=== PATIENT | female | born 1970 | race Caucasian/White ===

== ENCOUNTER 2019-04-28 11:33 | Day surgery (SDC) | payer BC ==
[2019-04-28] MEDS ORDERED: LACTATED RINGER'S 1,000 ML IV (13:00)
[2019-04-28] MEDS ORDERED: BUPIVACAINE 0.5% (SDV) 30 ML INJ (13:47)
[2019-04-28] MEDS ORDERED: LIDOCAINE 1% (MDV) 20 ML INJ (13:56)
[2019-04-28] MEDS ORDERED: FENTAnyl 50 MCG/ML VIAL (13:57)
[2019-04-28] MEDS ORDERED: CEFAZOLIN 1 GM INJ (13:57)
[2019-04-28] MEDS ORDERED: MIDAZOLAM 1 MG/ML 2 ML INJ (13:57)
[2019-04-28] MEDS ORDERED: LABETALOL HCL 20MG INJ IV (14:00)
[2019-04-28] MEDS ORDERED: DIPHENHYDRAMINE 50 MG INJ IV (14:00)
[2019-04-28] MEDS ORDERED: hydrALAzine 20 MG INJ IV (14:00)
[2019-04-28] MEDS ORDERED: ALBUTEROL 0.083% (NEB) 2.5 MG/3 ML AMP HHN (14:00)
[2019-04-28] MEDS ORDERED: FENTAnyl 50 MCG/ML VIAL IV ×2 (14:00)
[2019-04-28] MEDS ORDERED: morphine 2 MG INJ IV ×2 (14:00)
[2019-04-28] MEDS ORDERED: EPHEDrine 25 MG/5 ML SYG IV (14:00)
[2019-04-28] MEDS ORDERED: HYDROmorphONE 1 MG/5 ML IV SYRINGE IV ×2 (14:00)
[2019-04-28] MEDS ORDERED: MEPERIDINE 25 MG INJ IV (14:00)
[2019-04-28] MEDS ORDERED: OXYCODONE/ACETAMINOPHEN (5/325) TAB PO ×2 (14:00)
[2019-04-28] MEDS ORDERED: PROPOFOL 60 ML (14:20)
[2019-04-28] MEDS: BUPIVACAINE 0.5% (SDV) 30 ML INJ INJ (14:30)
[2019-04-28] MEDS ORDERED: POVIDONE IODINE 10% 28.4 GM OINT (14:41)
[2019-04-28] MEDS: HYDROmorphONE 1 MG/5 ML IV SYRINGE IV (15:09)
[2019-04-28] MEDS: ONDANSETRON 4 MG INJ IV (17:02)
[2019-04-28] MEDS: ACETAMINOPHEN 325 MG TAB PO (17:56)
== END 2019-04-28 18:20 | disposition home or self-care (01) ==
LOC: SDS 11:33
DX: D21.22 Benign neoplasm of connective and other soft tissue of left lower limb, including hip (principal); I10 Essential (primary) hypertension; E66.9 Obesity, unspecified
CPT/HCPCS: 28039; 88307